=== PATIENT | male | born 1935 | race Caucasian/White ===

== ENCOUNTER 2018-02-14 03:35 | Observation (INO) ==
[2018-02-14] MEDS ORDERED: NITROGLYCERIN SL 0.4 MG TABLET SL PRN (03:56)
[2018-02-14] MEDS ORDERED: ASPIRIN 325 MG TABLET PO STA (03:56)
[2018-02-14] MEDS ORDERED: NITROGLYCERIN 2% OINT 1 INCH/GM PACK TOP STA (03:56)
[2018-02-14] MEDS ORDERED: NITROGLYCERIN SL 0.4 MG TABLET SL ONE (03:56)
[2018-02-14] MEDS ORDERED: HEPARIN 1,000 UNIT/1 ML VIAL IV STA (03:57)
[2018-02-14] MEDS ORDERED: HEPARIN DRIP 25,000 UNITS/500 ML PREMIX IV SCH (04:00)
[2018-02-14] MEDS ORDERED: MORPHINE 4 MG/1 ML VIAL IV STA (04:57)
[2018-02-14 05:00] LABS: Basophils # 0.1 10*3/uL (0.0-0.2); Basophils % 1.3 % (0.0-0.8); Eosinophils # 0.4 10*3/uL (0.0-0.87); Hematocrit 43.7 VOL% (42.0-52.0); Hemoglobin 14.6 GM/DL (14.0-18.0); Immature Granulocytes % 0.3 %; Immature Granulocytes Absolute 0.02 #; Lymphocytes # 1.6 10*3/uL (1.4-4.0); Lymphocytes % 24.6 % (21.2-54.2); Mean Corpuscular HGB Conc 33.4 GM/DL (32-36); Mean Corpuscular Hemoglobin 32 PG (27-34); Mean Platelet Volume 9.7 FL (9.6-12.0); Monocytes # 0.6 10*3/uL (0.11-0.8); Monocytes % 9.5 % (1.7-12.7); Neutrophils # 3.7 10*3/uL (1.4-7.4); Neutrophils % 58.3 % (38.7-73.9); Platelet Count 237 T/CUMM (130-400); Red Blood Count 4.55 MC/CUMM (3.8-5.5); Red Cell Distribution Width 13.8 % (9.3-17.3); White Blood Count 6.3 T/CUMM (4-12)
[2018-02-14] MEDS ORDERED: SODIUM CHLORIDE 0.9% 2,000 ML IV STA (05:05)
[2018-02-14] MEDS ORDERED: ONDANSETRON 4 MG/2 ML VIAL ONE (05:13)
[2018-02-14 05:20] LABS: Albumin 3.6 G/DL (3.4-5.0); Bilirubin,Total 0.5 MG/DL (0.2-1.0); Osmolality,Calculated 285.1 MOS/KG (273-304); Potassium 3.6 MMOL/L (3.5-5.1); Total Protein 7.1 G/DL (6.4-8.3)
[2018-02-14] MEDS ORDERED: ONDANSETRON 4 MG/2 ML VIAL IV STA (05:27)
[2018-02-14] MEDS ORDERED: MORPHINE 4 MG/1 ML VIAL IV PRN (05:57)
[2018-02-14] MEDS ORDERED: ONDANSETRON 4 MG/2 ML VIAL IV PRN (05:57)
[2018-02-14 07:27] LABS: Risk Ratio 3.19
[2018-02-14] MEDS ORDERED: POTASSIUM CHLORIDE RIDER 10 MEQ in PREMIX 1 EACH IV PRN (09:09)
[2018-02-14] MEDS ORDERED: diphenhydrAMINE CAP 25 MG CAPSULE PO ONE (09:09)
[2018-02-14] MEDS ORDERED: MAGNESIUM SULF RIDER 2 GM in PREMIX 1 EACH IV PRN (09:09)
[2018-02-14] MEDS ORDERED: DIAZEPAM 5 MG TABLET PO ONE (09:09)
[2018-02-14] MEDS ORDERED: DIAZEPAM 5 MG TABLET ONE (09:21)
[2018-02-14] MEDS ORDERED: diphenhydrAMINE CAP 25 MG CAPSULE ONE (09:21)
[2018-02-14] MEDS ORDERED: SODIUM CHLORIDE 0.9% 1,000 ML IV SCH (09:30)
[2018-02-14] MEDS ORDERED: NITROGLYCERIN DRIP 50 MG/250 ML BOTTLE IV ONE (09:37)
[2018-02-14] MEDS ORDERED: HYDROmorphone 2 MG/1 ML VIAL ONE (09:38)
[2018-02-14] MEDS ORDERED: MIDAZOLAM 2 MG/2 ML VIAL ONE (09:38)
[2018-02-14] MEDS ORDERED: VERAPAMIL 5 MG/2 ML VIAL ONE (09:38)
[2018-02-14] MEDS ORDERED: HEPARIN 5,000 UNIT/1 ML VIAL ONE (09:59)
[2018-02-14] MEDS ORDERED: TICAGRELOR 90 MG TABLET ONE (10:09)
[2018-02-14] MEDS ORDERED: DOPamine 800 MG/250 ML PREMIX IV ONE (10:21)
[2018-02-14] MEDS ORDERED: TIROFIBAN 5,000 MCG/100 ML PREMIX IV ONE (10:22)
[2018-02-14] MEDS ORDERED: TIROFIBAN 5,000 MCG/100 ML PREMIX IV SCH (10:29)
[2018-02-14] MEDS ORDERED: SODIUM CHLORIDE 0.45% 1,000 ML IV SCH (11:30)
[2018-02-14 13:16] LABS: CKMB % 14.1 %
[2018-02-14 13:17] LABS: Troponin I Only 4.53 NG/ML (0.00-0.045)
[2018-02-14] MEDS: CHOLECALCIFEROL 1,000 UNIT TABLET PO SCH (15:00)
[2018-02-14] MEDS: NIACIN 500 MG TABLET PO SCH (15:00)
[2018-02-14] MEDS: ROSUVASTATIN 20 MG TABLET PO SCH (18:30)
[2018-02-14] MEDS: TAMSULOSIN 0.4 MG CAPSULE PO SCH (18:30)
[2018-02-14] MEDS: ASPIRIN EC 81 MG TABLET PO SCH (18:30)
[2018-02-14] MEDS ORDERED: METOPROLOL SUCCINATE XL 50 MG TABLET PO SCH (19:00)
[2018-02-14] MEDS: MELATONIN 3 MG TABLET PO SCH (20:47)
[2018-02-14] MEDS: FAMOTIDINE 20 MG TABLET PO SCH (20:47)
[2018-02-14] MEDS: TICAGRELOR 90 MG TABLET PO SCH (20:47)
[2018-02-15 05:39] LABS: Basophils % 0.4 % (0.0-0.8); Eosinophils # 0.1 10*3/uL (0.0-0.87); Eosinophils % 1.5 % (0.00-10.9); Hematocrit 34.4 VOL% (42.0-52.0); Immature Granulocytes % 0.4 %; Immature Granulocytes Absolute 0.03 #; Lymphocytes # 0.8 10*3/uL (1.4-4.0); Lymphocytes % 9.8 % (21.2-54.2); Mean Corpuscular HGB Conc 34.9 GM/DL (32-36); Mean Corpuscular Hemoglobin 33 PG (27-34); Mean Corpuscular Volume 95.3 FL (87-102); Mean Platelet Volume 9.5 FL (9.6-12.0); Monocytes # 0.7 10*3/uL (0.11-0.8); Monocytes % 9.1 % (1.7-12.7); NRBC # 0.09 10*3/uL; Neutrophils # 6.3 10*3/uL (1.4-7.4); Neutrophils % 78.8 % (38.7-73.9); Platelet Count 179 T/CUMM (130-400); Red Blood Count 3.61 MC/CUMM (3.8-5.5); Red Cell Distribution Width 13.6 % (9.3-17.3); White Blood Count 7.9 T/CUMM (4-12)
[2018-02-15 06:05] LABS: Osmolality,Calculated 282.1 MOS/KG (273-304); Potassium 3.8 MMOL/L (3.5-5.1)
[2018-02-15 06:25] LABS: CKMB % 11.1 %
[2018-02-15 06:34] LABS: Troponin I Only 18.2 NG/ML (0.00-0.045)
[2018-02-15 06:46] LABS: Platelet Estimate Adequate
[2018-02-15 06:47] LABS: Microcytosis Slight
[2018-02-15] MEDS: FAMOTIDINE 20 MG TABLET PO SCH ×2 (08:30→21:15)
[2018-02-15] MEDS: NIACIN 500 MG TABLET PO SCH (08:30)
[2018-02-15] MEDS: CHOLECALCIFEROL 1,000 UNIT TABLET PO SCH (08:30)
[2018-02-15] MEDS: TICAGRELOR 90 MG TABLET PO SCH ×2 (08:30→21:15)
[2018-02-15] MEDS: ROSUVASTATIN 20 MG TABLET PO SCH (08:30)
[2018-02-15] MEDS: VALSARTAN 80 MG TABLET PO SCH ×2 (11:00→15:44)
[2018-02-15] MEDS: ACETAMINOPHEN 325 MG TABLET PO SCH ×3 (11:30→21:16)
[2018-02-15] MEDS: TAMSULOSIN 0.4 MG CAPSULE PO SCH (18:18)
[2018-02-15] MEDS: ASPIRIN EC 81 MG TABLET PO SCH (18:18)
[2018-02-15] MEDS: MELATONIN 3 MG TABLET PO SCH (21:15)
[2018-02-16 05:44] LABS: Basophils # 0.1 10*3/uL (0.0-0.2); Basophils % 0.7 % (0.0-0.8); Eosinophils # 0.1 10*3/uL (0.0-0.87); Eosinophils % 1.9 % (0.00-10.9); Hemoglobin 11.9 GM/DL (14.0-18.0); Immature Granulocytes % 0.3 %; Immature Granulocytes Absolute 0.02 #; Lymphocytes % 12.7 % (21.2-54.2); Mean Corpuscular Hemoglobin 32 PG (27-34); Mean Corpuscular Volume 91.9 FL (87-102); Mean Platelet Volume 9.6 FL (9.6-12.0); Monocytes # 0.8 10*3/uL (0.11-0.8); Monocytes % 10.4 % (1.7-12.7); Neutrophils # 5.6 10*3/uL (1.4-7.4); Platelet Count 194 T/CUMM (130-400); White Blood Count 7.6 T/CUMM (4-12)
[2018-02-16 06:12] LABS: Calcium 8.4 MG/DL (8.5-10.1); Osmolality,Calculated 286.7 MOS/KG (273-304); Potassium 3.4 MMOL/L (3.5-5.1)
[2018-02-16] MEDS: FAMOTIDINE 20 MG TABLET PO SCH (08:51)
[2018-02-16] MEDS: VALSARTAN 80 MG TABLET PO SCH (08:51)
[2018-02-16] MEDS: ROSUVASTATIN 20 MG TABLET PO SCH (08:52)
[2018-02-16] MEDS: ACETAMINOPHEN 325 MG TABLET PO SCH (08:52)
[2018-02-16] MEDS: TICAGRELOR 90 MG TABLET PO SCH (08:52)
[2018-02-16] MEDS ORDERED: METOPROLOL SUCCINATE XL 25 MG TABLET PO SCH (09:00)
[2018-02-16] MEDS: NIACIN 500 MG TABLET PO SCH (09:04)
[2018-02-16] MEDS: CHOLECALCIFEROL 1,000 UNIT TABLET PO SCH (09:04)
[2018-02-16 13:54] LABS: CKMB % 5.2 %
[2018-02-16 13:58] LABS: Troponin I Only 11.1 NG/ML (0.00-0.045)
[2018-02-16 15:42] VITALS: BP 134/84
== END 2018-02-16 17:15 | disposition home or self-care (01) ==
LOC: N.ED 03:35 → N.EDINP 03:35 → SUATTDRO 05:57 → N.EDINP 09:30 → N.ICU 15:00 → N.TELEN 02-15 15:46
PROVIDERS: ADMIT Internal Medicine; ATTEND Internal Medicine